=== PATIENT | female | born 1985 | race Caucasian/White ===

== ENCOUNTER 2019-04-15 09:17 | Emergency (ER) | payer BC ==
[~2019-04-15] VITALS: Ht 162.6 cm; Wt 55.3 kg
--- NOTE | 2019-04-15 09:56 | NUR ---
PATIENT CAME IN TO THE ER C/O NASAL CONGESTION, BILAT EARACHE. WORSENING R SIDED FACIAL PAIN X 3 WEEKS. ON ROOM AIR, BREATHING EVENLY AND UNLABORED. CONNECTED TO THE MONITOR AND PULSE OX. KEPT COMFORTABLE, WILL CONTINUE TO MONITOR ACCORDINGLY.
[2019-04-15 09:57] VITALS: BP 115/65
--- NOTE | 2019-04-15 09:57 | NUR ---
Patient discharged to home in stable condition. Written and verbal after care instructions given. Patient verbalizes understanding of instruction.
== END 2019-04-15 09:57 | disposition home or self-care (01) ==
LOC: ER 09:17
DX: J32.0 Chronic maxillary sinusitis (principal)